=== PATIENT | female | born 1960 | race African-American/Black ===

== ENCOUNTER 2017-01-29 10:00 | Day surgery (SDC) | payer SELFPAY ==
[~2017-01-29] VITALS: Ht 182.9 cm; Wt 114.3 kg
[2017-01-29] VITALS (10 sets, daily range): BP systolic 137–174; BP diastolic 15–103
--- NOTE | 2017-01-29 08:26 | Pre-Procedure Note/Attestation ---
Pre-Procedure Note/Attestation Complete Prior to Procedure Planned Procedure: right Procedure Narrative: Peripheral cryopexy and laser indirect ophthalmoscopic treatment with possible PPV OD Indications for Procedure Pre-Operative Diagnosis: Localized retinal detachment Right eye Attestation I attest that I discussed the nature of the procedure; its benefits; risks and complications; and alternatives (and the risks and benefits of such alternatives ), prior to the procedure, with the patient (or the patient's legal medical device sales representative). I attest that, if there was a reasonable possibility of needing a blood transfusion, the patient (or the patient's legal medical device sales representative) was given the [facility] standardized written summary, pursuant to the Shamar Nambe Blood Safety Act ([place] Health and Safety Code # 1645, as amended). I attest that I re-evaluated the patient just prior to the surgery and that there has been no change in the patient's H&P, except as documented below: SB MONTENEGRO Jan 29, 2017 08:26
[2017-01-29] MEDS ORDERED: Pred Forte 1% Opth Susp 1ml RIGHT EYE SCH (11:00)
[2017-01-29] MEDS ORDERED: Vigamox Opth Soln 3ml ONE (11:04)
[2017-01-29] MEDS ORDERED: Phenylephrine 2.5% Op 2ml Soln ONE (11:05)
[2017-01-29] MEDS ORDERED: Flurbiprofen 0.03% Opth Sol 2.5ml ONE (11:05)
[2017-01-29] MEDS ORDERED: Cyclopentolate 1% Opth Sol 2ml ONE (11:05)
[2017-01-29] MEDS: Cyclopentolate 1% Opth Sol 2ml RIGHT EYE SCH ×3 (11:21→11:43)
[2017-01-29] MEDS: Vigamox Opth Soln 3ml RIGHT EYE SCH ×3 (11:21→11:43)
[2017-01-29] MEDS: Flurbiprofen 0.03% Opth Sol 2.5ml RIGHT EYE SCH ×3 (11:22→11:42)
[2017-01-29] MEDS: Phenylephrine 2.5% Op 2ml Soln RIGHT EYE SCH ×3 (11:22→11:43)
[2017-01-29] MEDS ORDERED: Kenalog-40 1ml Vial ONE (11:55)
[2017-01-29] MEDS ORDERED: BSS 500ml btl ONE (11:55)
[2017-01-29] MEDS ORDERED: SOMA250 MG PO (11:55)
[2017-01-29] MEDS ORDERED: HYDROCHLOROTHIA25 MG ORAL (11:55)
[2017-01-29] MEDS ORDERED: TRAMADOL HCL100 M2 ORAL (11:55)
[2017-01-29] MEDS ORDERED: Maxitrol Opth Oint 3.5gm ONE (11:56)
[2017-01-29] MEDS ORDERED: Tetracaine 0.5% Opth 4ml Soln ONE (11:56)
[2017-01-29] MEDS ORDERED: Kenalog-10 5ml Inj ONE (11:56)
[2017-01-29] MEDS ORDERED: Dexamethasone 4mg/ml vial ONE (11:56)
[2017-01-29] MEDS ORDERED: Lidocaine 2% MPF 5ml Vial INJ ONE (11:57)
[2017-01-29] MEDS ORDERED: BSS 15ml BTL ONE (11:57)
[2017-01-29] MEDS ORDERED: Povidone-Iodine 5% opth solution ONE (11:57)
[2017-01-29] MEDS ORDERED: Sodium Hyaluronate 10 mg/ml 0.85ml ONE (11:58)
[2017-01-29] MEDS ORDERED: Bupivacaine 0.75% 30ml vial INJ ONE (11:58)
[2017-01-29 12:24] LABS: ANION GAP 8 mmol/L (5-15); CALCIUM 8.9 MG/DL (8.5-10.1); CARBON DIOXIDE 26 MMOL/L (21-32); CHLORIDE 105 MMOL/L (98-107); CREATININE 0.8 MG/DL (0.55-1.30); GLOMERULAR FILTRATION RATE > 60 mL/min (>60); POTASSIUM 3.9 MMOL/L (3.5-5.1); SODIUM 139 MMOL/L (136-145)
[2017-01-29 12:42] LABS: EOSINOPHILS % (AUTO) 3.8 % (0.0-3.0); LYMPHOCYTES % (AUTO) 49.8 % (20.0-45.0); MEAN CORPUSCULAR HEMOGLOBIN 29.9 PG (27.0-31.0); MEAN CORPUSCULAR HGB CONC 32.4 G/DL (32.0-36.0); MEAN CORPUSCULAR VOLUME 92 FL (80-99); MEAN PLATELET VOLUME 11.3 FL (6.5-10.1); MONOCYTES % (AUTO) 10.3 % (1.0-10.0); NEUTROPHILS % (AUTO) 34.1 % (45.0-75.0); PLATELET COUNT 162 K/UL (150-450); RED BLOOD COUNT 4.75 M/UL (4.20-5.40); RED CELL DISTRIBUTION WIDTH 11.9 % (11.6-14.8); WHITE BLOOD COUNT 4.2 K/UL (4.8-10.8)
--- NOTE | 2017-01-29 12:45 | Pre-op HX & Phy Repo 2 SIG ---
DATE OF ADMISSION: 01/29/2017 PREOPERATIVE DIAGNOSIS: Localized retinal detachment, right eye with multiple breaks. BRIEF NOTE: This is the first [facility] admission for the patient. She is a very nice 56-year-old lady, who complained of significant flashes and a spark of light in the right eye, which was noted on 01/27/2017. On examination, she was found to have hold a retinal tear. There were series of tears and patch of lattice degeneration at 12 o'clock and showed at least a 2 clock hour retinal detachment. She is admitted for a repair of this detachment with possible vitrectomy. PAST OPERATIVE HISTORY: Remarkable for refractive laser surgery in both eyes in 2000. She has a history of myopia. Her medical history is essentially normal. She takes Soma, hydrochlorothiazide, and tramadol for arthritic pain and possible mild hypertension. Best vision at the time of admission was 20/40 in the right eye improving to 20/25 with pinholes and 20/20 on the left. The anterior segments were quiet in either eyes. The pressures were 14. Funduscopic examination of the right eye showed a vitreous separation. There was a patch of lattice degeneration extending from the 11 to 1 o'clock positions just anterior to the equator with a horseshoe tear and what appeared to be at least 1 round hole in the bed of the lattice. A localized retinal detachment was seen from the pars plana down to the equator covering the 2 clock hours. The macula was attached. The left fundus showed no evidence of retinal tears or lattice. ASSESSMENT: Localized retinal detachment, right eye. PLAN: The plan is to perform a peripheral cryopexy with possible laser indirect treatment and gas injection. A vitrectomy will be performed only if needed. The risks and benefits of surgery gone over the patient with potential for infection, glaucoma, cataract formation, the possibility of the need for additional surgeries of the retina was not be attached, remote possibility of loss of the eye. The risk of anesthesia was discussed. This patient understands and consents to the surgery, which will be performed this afternoon. Bill Mckeon M.D. DR: PATRICIA JOB#: [id number] CC: LEROY
[2017-01-29] MEDS ORDERED: Sterile Water Irrig 1000ml IRRIG ONE (13:00)
[2017-01-29] MEDS ORDERED: Propofol 200mg/20ml IV ONE (13:00)
[2017-01-29] MEDS ORDERED: fentaNYL 100 mcg/2 mL IV ONE (13:00)
[2017-01-29] MEDS ORDERED: Midazolam 2mg/2ml Inj ONE (13:00)
[2017-01-29] MEDS ORDERED: Lidocaine 1% MPF 10mg/ml 5ml ONE (13:00)
[2017-01-29] MEDS ORDERED: LR 1000ml ONE (13:00)
[2017-01-29] MEDS ORDERED: NS Irrig 1000ml ONE (13:00)
--- NOTE | 2017-01-29 13:21 | Anethesia Preoperative Eval ---
Anesthesia Pre-op PMH/ROS General Date of Evaluation: Jan 29, 2017 Anesthesiologist: Kulwinder ASA Score: ASA 2 Mallampati Score Class I : Soft palate, uvula, fauces, pillars visible Class II: Soft palate, uvula, fauces visible Class III: Soft palate, base of uvula visible Class IV: Only hard plate visible Mallampati Classification: Class III Surgeon: Mike Diagnosis: Right eye retinal detachment Surgical Procedure: Right eye cryopexy and injection of gas Anesthesia History: none Family History: no anesthesia problems Allergies: Coded Allergies: PENICILLINS (Verified Allergy, Unknown, 01/29/17) Medications: see eMAR Past Medical History Cardiovascular: Reports: HTN, Denies: CAD, MA, valve dz, arrhythmia, other Pulmonary: Denies: asthma, COPD, EDUARDA, other Gastrointestinal/Genitourinary: Denies: GERD, CRI, ESRD, other Neurologic/Psychiatric: Reports: depression/anxiety, Denies: dementia, CVA, TIA, other Endocrine: Denies: DM, hypothyroidism, steroids, other HEENT: Denies: cataract (L), cataract (R), glaucoma, [employer] (L), [employer] (R), other Hematology/Immune: Denies: anemia, DVT, bleeding disorder, other Musculoskeletal/Integumentary: Denies: OA, RA, DJD, DDD, edema, other Other: obesity PSxH Narrative: T&A, bilateral knee arthroscopies Anesthesia Pre-op Phys. Exam Physician Exam Last Vital Signs Date Time Temp Pulse Resp B/P (MAP) Pulse Ox O2 Delivery O2 Flow Rate FiO2 01/29/17 11:48 97.9 63 19 137/82 99 Room Air Constitutional: NAD Cardiovascular: RRR Respiratory: CTA Airway Exam Mallampati Score: Class III MO: limited ROM: full Teeth: intact Anesthesia Pre-op A/P Labs Hematology Test 01/29/17 11:54 White Blood Count 4.2 K/UL (4.8-10.8) L Red Blood Count 4.75 M/UL (4.20-5.40) Hemoglobin 14.2 G/DL (12.0-16.0) Hematocrit 43.9 % (37.0-47.0) Mean Corpuscular Volume 92 FL (80-99) Mean Corpuscular Hemoglobin 29.9 PG (27.0-31.0) Mean Corpuscular Hemoglobin Concent 32.4 G/DL (32.0-36.0) Red Cell Distribution Width 11.9 % (11.6-14.8) Platelet Count 162 K/UL (150-450) Mean Platelet Volume 11.3 FL (6.5-10.1) H Neutrophils (%) (Auto) 34.1 % (45.0-75.0) L Lymphocytes (%) (Auto) 49.8 % (20.0-45.0) H Monocytes (%) (Auto) 10.3 % (1.0-10.0) H Eosinophils (%) (Auto) 3.8 % (0.0-3.0) H Basophils (%) (Auto) 2.0 % (0.0-2.0) Chemistry Test 01/29/17 11:54 Sodium Level 139 MMOL/L (136-145) Potassium Level 3.9 MMOL/L (3.5-5.1) Chloride Level 105 MMOL/L (98-107) Carbon Dioxide Level 26 MMOL/L (21-32) Anion Gap 8 mmol/L (5-15) Blood Urea Nitrogen 10 mg/dL (7-18) Creatinine 0.8 MG/DL (0.55-1.30) Estimat Glomerular Filtration Rate > 60 mL/min (>60) Glucose Level 83 MG/DL (74-106) Calcium Level 8.9 MG/DL (8.5-10.1) Studies Pre-op Studies: EKG - sr Risk Assessment & Plan Assessment: ASA II Plan: GA Status Change Before Surgery: No Pre-Antibiotics Drug: N/A JULIUS WATTS M.D. Jan 29, 2017 13:21
[2017-01-29] MEDS ORDERED: LR 1000ml 1,000 ML IVLG SCH (13:37)
--- NOTE | 2017-01-29 13:37 | Immediate Post-Op Evaluation ---
Immediate Post-Op Evalulation Immediate Post-Op Evalulation Procedure: Right eye cryopexy and injection of gas Date of Evaluation: Jan 29, 2017 Time of Evaluation: 14:26 IV Fluids: 500 Blood Products: 0 Estimated Blood Loss: min Urinary Output: 0 Blood Pressure Systolic: 168 Blood Pressure Diastolic: 99 Pulse Rate: 62 Respiratory Rate: 16 O2 Sat by Pulse Oximetry: 100 Temperature (Fahrenheit): 97.1 Pain Score (1-10): 0 Nausea: No Vomiting: No Complications 0 Patient Status: awake, reacts, patent, none Hydration Status: adequate Drug: N/A JULIUS WATTS M.D. Jan 29, 2017 13:37
--- NOTE | 2017-01-29 13:37 | 48 Hour Post Anesthesia Eval ---
Post Anesthesia Evaluation Procedure: Right eye cryopexy and injection of gas Date of Evaluation: Jan 29, 2017 Airway: patent Nausea: No Vomiting: No Pain Intensity: 0 Hydration Status: adequate Cardiopulmonary Status: at baseline Mental Status/LOC: patient returned to baseline Post-Anesthesia Complications: 0 Follow-up care needed: ready to discharge JULIUS WATTS M.D. Jan 29, 2017 13:37
[2017-01-29] MEDS ORDERED: DiphenhydrAMINE 50mg/ml Inj IVP PRN (13:45)
[2017-01-29] MEDS ORDERED: LORazepam Inj 2mg/ml 1ml IV PRN (13:45)
[2017-01-29] MEDS ORDERED: Metoclopramide 10mg/2ml Inj IVP PRN (13:45)
[2017-01-29] MEDS ORDERED: Midazolam 2mg/2ml Inj IVP PRN (13:45)
--- NOTE | 2017-01-29 14:22 | Brief Operative Note ---
Immediate Post Operative Note Operative Note Chief Complaint: Flashing lights and floaters R eye Pre-op Diagnosis: Localized retinal detachment Right eye Procedure: Peripheral retinal cryopexy, Gas injection (0.3cc C3F8), paracentesis Right eye Post-op Diagnosis: same as pre-op Surgeon: elvira Anesthesiologist: Ivanna Dan Anesthesia: general Specimen: none Complications: none Condition: stable Fluids: None Estimated Blood Loss: none Drains: none Implant(s) used?: No SB MONTENEGRO Jan 29, 2017 14:22
[2017-01-29] MEDS ORDERED: oxyCODONE HCL/Acetaminophen 5/325mg ORAL ONE ×2 (15:03→15:10)
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
--- NOTE | 2017-01-29 23:45 | Operative Note - Dictated ---
DATE OF OPERATION: 01/29/2017 PREOPERATIVE DIAGNOSIS: Localized retinal detachment with multiple breaks, right eye. POSTOPERATIVE DIAGNOSIS: Localized retinal detachment with multiple breaks, right eye. PROCEDURE: 1. Peripheral retinal cryopexy. 2. Gas injection. 3. Paracentesis, right eye. SURGEON: Bill Montenegro M.D. MERCHANDISING REPRESENTATIVE: None. ANESTHESIA: LMA general. ANESTHESIOLOGIST: Ivanna Dan M.D. JUSTIFICATION FOR SURGERY: This 56-year-old lady developed significant flashing lights and floaters three days ago in the right eye and was found to have a localized retinal elevation with multiple breaks and subretinal fluid. BRIEF NOTE: The patient was brought to the operating room, placed on OR table in supine position. After time-out was performed, general LMA anesthesia was induced by Dr. Dan. A limited retrobulbar block of 3 mL was given in the standard way. Before prepping, the eye was examined with indirect ophthalmoscope and the localized detachment with at least two round breaks was seen. A small area of pigmentation was noted in the far periphery at the 7 o'clock position. Using gentle cryopexy, the superior breaks were gently treated. The suspicious area at 7 o'clock was also treated. Careful scleral depression showed no other areas of pathology. At the conclusion of this maneuver, the patient was prepped and draped in the normal manner. Preparation was made for injection of gas. A site 4 mm from the limbus at the 10 o'clock position was chosen. Using a 30-gauge needle, 0.3 mL of pure C3F8 was injected. Pressure was normalized by performing a paracentesis with a different 30-gauge needle at the 12 o'clock position. The eye was left soft. Additional examination showed no induced breaks after the injection of gas. At this point, subconjunctival Decadron and gentamicin were injected both superiorly and inferiorly. Gentamicin and Pred Forte drops were instilled as well as Maxitrol ointment. The eye was patched and shielded. The patient was taken to recovery in excellent condition. She is to be placed in face-down position for 30 minutes and to be placed in the upright position thereafter. Bill Montenegro, M.D. DR: ADRIANA JOB#: [id number] CC: Paul Lara M.D.; Fax#: [phone] BILL MONTENEGRO M.D. ; FAX#: [phone]
--- NOTE | 2017-02-04 10:43 | Cardiology Report ---
APPROVED REPORT EKG Measurement Heart [id number] Normal sinus rhythm Moderate voltage criteria for LVH, may be normal variant Borderline ECG
== END 2017-01-29 16:40 | disposition home or self-care (01) ==
LOC: SUR 10:00
DX: H33.21 Serous retinal detachment, right eye (principal); I10 Essential (primary) hypertension; E66.9 Obesity, unspecified; Z68.34 Body mass index [BMI] 34.0-34.9, adult; M54.9 Dorsalgia, unspecified; Z88.0 Allergy status to penicillin; F32.9 Major depressive disorder, single episode, unspecified; F41.9 Anxiety disorder, unspecified; Z82.49 Family history of ischemic heart disease and other diseases of the circulatory system; Z82.3 Family history of stroke
CPT/HCPCS: 36415; 67101; 67110; 80048; 85025; 93005; J0360; J1100; J2250; J2704; J3010; J3470; J3490; J7120; 94003; 94150